=== PATIENT | female | born 1955 | race Caucasian/White ===

== ENCOUNTER 2019-08-20 17:02 | Emergency (ER) | payer MEDICAID ==
[~2019-08-20] VITALS: Ht 160 cm; Wt 95.3 kg
[2019-08-20] MEDS ORDERED: predniSONE 20 MG TABLET ONE (17:16)
[2019-08-20] MEDS ORDERED: IPRATROPIUM NEB FS 0.5 MG/2.5 ML AMPUL.NEB ONE (17:26)
[2019-08-20] MEDS ORDERED: ALBUTEROL FS 2.5 MG/3 ML VIAL.NEB ONE (17:26)
[2019-08-20] MEDS ORDERED: predniSONE 20 MG TABLET PO ONE (17:30)
[2019-08-20] MEDS ORDERED: ALBUTEROL FS 2.5 MG/3 ML VIAL.NEB NEB ONE (17:30)
[2019-08-20] MEDS ORDERED: IPRATROPIUM NEB FS 0.5 MG/2.5 ML AMPUL.NEB NEB ONE (17:30)
[2019-08-20 18:07] VITALS: BP 119/74
== END 2019-08-20 18:08 | disposition home or self-care (01) ==
LOC: ER 17:10
DX: J20.9 Acute bronchitis, unspecified (principal); I10 Essential (primary) hypertension; E11.9 Type 2 diabetes mellitus without complications; M19.90 Unspecified osteoarthritis, unspecified site
CPT/HCPCS: 71045; 94640 ×2; 99284; J7512